=== PATIENT | male | born 1965 | race Caucasian/White ===

== ENCOUNTER 2020-02-04 11:49 | Emergency (ER) | payer OTHER ==
[~2020-02-04] VITALS: Ht 167.6 cm; Wt 52.2 kg
[2020-02-04] MEDS ORDERED: LIDOCAINE VISC100 ML SWISH&SPIT (12:17)
[2020-02-04] MEDS ORDERED: TYLENOL WITH CO1 TA1 PO (12:17)
[2020-02-04] MEDS ORDERED: AMOXICILLIN 50500 MG PO (12:17)
[2020-02-04 12:29] VITALS: BP 159/76
== END 2020-02-04 12:30 | disposition home or self-care (01) ==
LOC: M.ERS 11:49
DX: K04.7 Periapical abscess without sinus (principal)